=== PATIENT | male | born 1950 | race Caucasian/White ===

== ENCOUNTER 2019-12-28 14:54 | Emergency (ER) | payer MEDICARE, BC ==
[~2019-12-28] VITALS: Ht 182.9 cm; Wt 87.0 kg
[2019-12-28] MEDS ORDERED: bacitracin 15gm ointment TP ONE (15:15)
[2019-12-28] MEDS ORDERED: TETanus/Pertussis (Acell)/Diphther VAC/PF (Tdap-Adult) 0.5ml syringe IMVAC ONE (15:15)
[2019-12-28] MEDS ORDERED: SULF1TAB49 PO (15:19)
[2019-12-28] MEDS ORDERED: ondansetron 4mg rapidly disintigrating tab PO ONE (15:20)
[2019-12-28] MEDS ORDERED: sulfamethoxazole/trimethoprim DS (800/160mg) tablet PO ONE (15:20)
--- NOTE | 2019-12-28 15:34 | NUR ---
Dr Vegas at bedside for laceration repair.
[2019-12-28 16:09] VITALS: BP 163/82
== END 2019-12-28 16:16 | disposition home or self-care (01) ==
LOC: ER 14:55
DX: S61.411A Laceration without foreign body of right hand, initial encounter (principal); S81.812A Laceration without foreign body, left lower leg, initial encounter; Z79.2 Long term (current) use of antibiotics; W18.39XA Other fall on same level, initial encounter; Y93.89 Activity, other specified; Y92.89 Other specified places as the place of occurrence of the external cause; Y99.8 Other external cause status
CPT/HCPCS: 12002; 90471; 90715; 99284

== ENCOUNTER 2020-01-08 12:22 | Emergency (ER) | payer MEDICARE, BC ==
[~2020-01-08] VITALS: Ht 182.9 cm; Wt 84.1 kg
[2020-01-08 12:26] VITALS: BP 140/90
== END 2020-01-08 13:33 | disposition home or self-care (01) ==
LOC: ER 12:22
DX: S61.214D Laceration without foreign body of right ring finger without damage to nail, subsequent encounter (principal); S81.812D Laceration without foreign body, left lower leg, subsequent encounter; Z79.899 Other long term (current) drug therapy; W11.XXXD Fall on and from ladder, subsequent encounter
CPT/HCPCS: 99284

== ENCOUNTER 2021-11-18 03:11 | Emergency (ER) | payer MEDICARE, BC ==
[~2021-11-18] VITALS: Ht 182.9 cm; Wt 84.0 kg
[2021-11-18 03:18] VITALS: BP 142/60
[2021-11-18] MEDS ORDERED: LIDOcaine 1% W/epiNEPHrine 1:100,000 20ml vial ONE (08:00)
== END 2021-11-18 04:49 | disposition home or self-care (01) ==
LOC: ER 03:11
DX: S01.81XA Laceration without foreign body of other part of head, initial encounter (principal); S61.216A Laceration without foreign body of right little finger without damage to nail, initial encounter; W18.09XA Striking against other object with subsequent fall, initial encounter; Z91.81 History of falling; Y93.89 Activity, other specified; Y92.89 Other specified places as the place of occurrence of the external cause; Y99.8 Other external cause status
CPT/HCPCS: 12001; 12015; 99284; J3490

== ENCOUNTER 2023-11-24 11:48 | Day surgery (SDC) | payer MEDICARE, BC ==
[2023-11-24] VITALS (8 sets, daily range): BP systolic 140–156; BP diastolic 74–92; PULSE 64–86; RESP 16; TEMP 97.6; O2SAT 97–98
[~2023-11-24] VITALS: Ht 198.1 cm; Wt 84.7 kg
[2023-11-24] MEDS ORDERED: normal saline 1,000 ML IV SCH (12:10)
[2023-11-24] MEDS ORDERED: LORazepam 0.5 MG tablet PO PRN (12:10)
[2023-11-24] MEDS ORDERED: diphenhydrAMINE 25mg capsule PO PRN (12:10)
[2023-11-24] MEDS ORDERED: SACU1TAB4 PO (12:12)
[2023-11-24] MEDS ORDERED: ROSU40TA22 PO (12:12)
[2023-11-24] MEDS ORDERED: CARV25TA PO (12:12)
[2023-11-24] MEDS ORDERED: ASPI-1265 PO (12:12)
[2023-11-24] MEDS ORDERED: EMPA10TA PO (12:12)
[2023-11-24] MEDS ORDERED: SPIR25TA PO (12:12)
[2023-11-24 12:30] LABS: BASOPHILS % (AUTO) 0.4 % (0-1); EOSINOPHILS # (AUTO) 0.2 X10'3 (0-0.9); EOSINOPHILS % (AUTO) 2.5 % (0-6); HEMATOCRIT 46.9 % (42.0-52.0); HEMOGLOBIN 15.9 g/dl (14.0-17.9); LYMPHOCYTES % (AUTO) 12.8 % (21-51); MEAN CORPUSCULAR HEMOGLOBIN 32.6 PG (27.0-31.0); MEAN CORPUSCULAR HGB CONC 33.9 g/dL (33.0-36.5); MEAN CORPUSCULAR VOLUME 96.3 FL (78-98); MEAN PLATELET VOLUME 8.2 FL (7.4-10.4); MONOCYTES # (AUTO) 0.4 X10'3 (0-0.9); MONOCYTES % (AUTO) 5.4 % (2-12); NEUTROPHILS # (AUTO) 6.1 X10'3 (1.8-7.7); NEUTROPHILS % (AUTO) 78.9 % (42-75); PLATELET COUNT 164 X10'3 (140-440); RED BLOOD COUNT 4.87 X10'6 (4.70-6.10); RED CELL DISTRIBUTION WIDTH 15.3 % (11.5-14.5); WHITE BLOOD COUNT 7.7 X10'3 (4.5-11.0)
[2023-11-24] MEDS ORDERED: fentaNYL/PF 50MCG/1 ML 2ML syringe ONE (12:31)
[2023-11-24] MEDS ORDERED: iohexol 350MG/ML 100ml bottle IV ONE (12:31)
[2023-11-24] MEDS ORDERED: midazolam 1 mg/ML 2ml injection ONE (12:31)
[2023-11-24] MEDS ORDERED: LIDOcaine 1% 30ml preserv. free vial ONE (12:35)
[2023-11-24 12:45] LABS: APTT 27 SECONDS (22-32); PROTHROMBIN TIME 10.9 SECONDS (9.0-12.0)
[2023-11-24 12:48] LABS: ANION GAP 13 (8-16); BLOOD UREA NITROGEN 21 MG/DL (7-18); BUN/CREATININE RATIO 18.6 (10.0-20.0); CALCIUM 8.9 MG/DL (8.5-10.1); CHLORIDE 108 MMOL/L (99-107); CREATININE 1.13 MG/DL (0.60-1.10); GLUCOSE 78 MG/DL (70-104); POTASSIUM 4.1 MMOL/L (3.5-5.1); SODIUM 146 MMOL/L (135-145); TOTAL CARBON DIOXIDE 25.5 MMOL/L (24-32); eCRCL 72 ML/MIN; eGFR 64 ML/MIN
[2023-11-24 12:54] LABS: CHOL/HDL RATIO 1.8 (0.00-4.99); CHOLESTEROL 177 MG/DL (0-200); HDL CHOLESTEROL 101 MG/DL (35-60); LDL CHOLESTEROL 56 MG/DL (50-100); TRIGLYCERIDES 55 MG/DL (20-135)
[2023-11-24] MEDS ORDERED: heparin 1,000unit/ml 10ml vial 10 ML ONE (13:17)
[2023-11-24] MEDS ORDERED: verapamil 2.5 mg/ml inj IV ONE (13:17)
[2023-11-24] MEDS ORDERED: nitroGLYCERIN 500mcg/5mL D5W 5 ML IV ONE (13:17)
[2023-11-24] MEDS ORDERED: iohexol 350 MG/ML 50ML vial IV ONE (13:33)
[2023-11-24] MEDS ORDERED: HYDROcodone/acetaminophen 5mg/325mg tablet PO PRN (14:15)
[2023-11-24] MEDS ORDERED: HYDROcodone/acetaminophen 10/325mg tab PO PRN (14:15)
== END 2023-11-24 15:45 | disposition home or self-care (01) ==
LOC: SSTAY O 11:48
PROVIDERS: ATTEND Student in an Organized Health Care Education/Training Program
DX: I11.0 Hypertensive heart disease with heart failure (principal); I50.22 Chronic systolic (congestive) heart failure; I49.3 Ventricular premature depolarization; E78.00 Pure hypercholesterolemia, unspecified; I73.9 Peripheral vascular disease, unspecified; I42.9 Cardiomyopathy, unspecified; Z86.711 Personal history of pulmonary embolism; Z79.82 Long term (current) use of aspirin; Z79.899 Other long term (current) drug therapy; Z98.890 Other specified postprocedural states
CPT/HCPCS: 36415; 80048; 80061; 85025; 85610; 85730; 93005; 93458; 93571; 99152; 99153; J1644; J2250; J3010; J3490; J7030; Q9967; 93572; A6258; A6402; C1751; C1769; C1894